=== PATIENT | female | born 1980 | race Caucasian/White ===

== ENCOUNTER 2018-12-22 12:45 | Emergency (ER) | payer MEDICAID ==
[~2018-12-22] VITALS: Ht 165.1 cm; Wt 84.0 kg
[2018-12-22] MEDS ORDERED: acetaminophen (13:17)
[2018-12-22] MEDS ORDERED: IBUPROFEN 800MG TABLET PO ONE (14:30)
[2018-12-22 14:55] VITALS: BP 128/70
== END 2018-12-22 15:02 | disposition home or self-care (01) ==
LOC: ER 13:18
DX: H66.92 Otitis media, unspecified, left ear (principal); H60.92 Unspecified otitis externa, left ear
CPT/HCPCS: 99283